=== PATIENT | male | born 1975 | race Caucasian/White ===

== ENCOUNTER 2019-03-22 17:01 | Emergency (ER) | payer SELFPAY ==
[2019-03-22 17:26] VITALS: BMI 28.2
[2019-03-22 18:26] VITALS: RESP 18
[2019-03-22 18:51] LABS: BASO # 0.1 K/uL (0.0-0.2); BASO % 1.1 % (0.0-2.0); EOS # 0.2 K/uL (0.0-0.7); EOS % 3.5 % (0.0-4.0); HEMOGLOBIN 14.5 g/dL (12.0-18.0); LYMPH # 1.9 K/uL (1.0-4.3); LYMPH % 30.8 % (20.0-40.0); MEAN CELL VOLUME 85.7 fL (80.0-94.0); MEAN CORPUSCULAR HEMOGLOBIN 29.5 pg (27.0-31.0); MEAN CORPUSCULAR HGB CONC 34.5 g/dL (33.0-37.0); MONO # 0.5 K/uL (0.0-0.8); MONO % 8.3 % (0.0-10.0); NEUT # 3.5 K/uL (1.8-7.0); NEUT % 56.3 % (50.0-75.0); NRBC % 0.1 % (0.0-2.0); RBC 4.9 Mil/uL (4.40-5.90); RED CELL DISTRIBUTION WIDTH 13.8 % (11.5-14.5); WHITE BLOOD COUNT 6.2 K/uL (4.8-10.8)
[2019-03-22 18:53] VITALS: O2SAT 98
[2019-03-22 19:03] LABS: ALB/GLOB RATIO 1.2 (1.0-2.1); ALBUMIN 4.6 g/dL (3.5-5.0); ALT/SGPT 54 U/L (21-72); AST/SGOT 31 U/L (17-59); BLOOD UREA NITROGEN 12 mg/dL (9-20); CALCIUM 9.8 mg/dl (8.6-10.4); GFR NON-AFRICAN AMERICAN > 60
[2019-03-22] MEDS ORDERED: Iodixanol 320 MG/ML 100 ML BOTTLE IV ONE (19:18)
--- NOTE | 2019-03-22 21:11 | C.PDOC ---
History Of Present Illness 43-year-old male presents to the ED c/o right eye pain for the past 3 days. Patient reports associated redness, tearing and itching. Patient states that he often experiences these symptoms but they usually resolve on their own. Patient grew concerned when he developed a small lump at the medial canthus that is tender to touch. Patient denies any recent illness, trauma, seasonal allergies, fever, chills, rhinorrhea, cough, nausea, vomiting. Time Seen by Provider: 03/22/19 17:32 Chief Complaint (Nursing): ENT Problem History Per: Patient History/Exam Limitations: no limitations Onset/Duration Of Symptoms: Days (3) Injury To Eye?: No Quality: "Pain" Past Medical History Reviewed: Historical Data, Nursing Documentation, Vital Signs Vital Signs: Last Vital Signs Temp 97.8 F 03/22/19 18:53 Pulse 55 L 03/22/19 18:53 Resp 18 03/22/19 18:53 BP 144/90 03/22/19 18:53 Pulse Ox 98 03/22/19 18:53 Primary Care Provider: FAMILY PROVIDER,NO - Medical History PMH: No Chronic Diseases Surgical History: Appendectomy Family History: States: Unknown Family Hx - Social History Hx Alcohol Use: No Hx Substance Use: No - Immunization History Hx Tetanus Toxoid Vaccination: No Hx Influenza Vaccination: No Hx Pneumococcal Vaccination: No Review Of Systems Constitutional: Negative for: Fever, Chills Eyes: Positive for: Pain (right). Negative for: Vision Change ENT: Negative for: Nose Discharge, Nose Congestion Respiratory: Negative for: Cough Gastrointestinal: Negative for: Nausea, Vomiting Musculoskeletal: Negative for: Neck Pain Skin: Negative for: Rash, Bruising Neurological: Negative for: Headache, Dizziness Physical Exam - Physical Exam Appears: Non-toxic, No Acute Distress Skin: Normal Color, Warm, Dry Head: Atraumatic, Normacephalic Eye(s): bilateral: PERRL, EOMI, Other (vision: 20/20 OU, 20/25 OD, 20/25 OS. Pressure 14OD, 9OS. pea-sized edema noted at the right medial canthus, between the bridge of nose and eye with erythema of the skin. area is tender to palpation. no active pus drainage from noted from the site. tearing of the eyes and conjunctival injection noted. no inflammation of the lashes. eyes are asymmetric, with right eye appearing slightly sunken. ) Ear(s): Bilateral: Normal Nose: No Discharge, Other (boggy turbinates ) Oral Mucosa: Moist Tongue: Normal Appearing Lips: Normal Appearing Throat: No Erythema, No Exudate Neck: Normal ROM, Supple Cardiovascular: Rhythm Regular Respiratory: Normal Breath Sounds, No Wheezing Neurological/Psych: Oriented x3, Normal Speech, Normal Cognition ED Course And Treatment - Laboratory Results Result Diagrams: 03/22/19 18:46 03/22/19 18:46 Lab Results: Total Bilirubin 0.3 mg/dL (0.2-1.3) 03/22/19 18:46 AST 31 U/L (17-59) 03/22/19 18:46 ALT 54 U/L (21-72) 03/22/19 18:46 Alkaline Phosphatase 56 U/L (38-126) 03/22/19 18:46 Total Protein 8.4 g/dL (6.3-8.3) H 03/22/19 18:46 Albumin 4.6 g/dL (3.5-5.0) 03/22/19 18:46 Globulin 3.8 gm/dL (2.2-3.9) 03/22/19 18:46 Albumin/Globulin Ratio 1.2 (1.0-2.1) 03/22/19 18:46 O2 Sat by Pulse Oximetry: 98 (on RA ) Pulse Ox Interpretation: Normal - CT Scan/US CT Orbits Other Rad Studies (CT/US): Read By Radiologist, Radiology Report Reviewed CT/US Interpretation: EXAM: CT Orbits with Intravenous Contrast. CLINICAL HISTORY: Redness/swelling right eye. TECHNIQUE: Axial computed tomography images of the orbits with intravenous contrast. 0.00 mGy-cm. CONTRAST: With; visipaque 320/100ml. COMPARISON: None provided. FINDINGS: ORBITS: Unremarkable. No retrobulbar hematoma. No post-septal fat stranding or fluid. An apparent 1.3 x 1.1 cm heterogeneous collection is seen in the medial canthus of the right orbit. A lacrimal duct mass or infectious process with obstruction cannot be excluded. Ophthalmology consultation is recommended. BONES: No acute fracture or aggressive appearing osseous lesion. No periosteal reaction. SINUSES: No sinus air-fluid level as visualized. SOFT TISSUES: No soft tissue gas. No radiopaque foreign body. IMPRESSION: 1. A 1.3 x 1.1 cm heterogeneous collection is seen in the medial canthus of the right orbit. A suspected lacrimal duct mass or infectious process causing duct obstruction may be present. Ophthalmology consultation is recommended. Medical Decision Making Medical Decision Making: Progress: Toradol IM and Clindamycin PO given for dacrocystistis CT orbits ordered- no orbital cellulitis but ductal obstruction noted labs unremarkable patient notified of the results and advised to follow up with ophtho but will continue antibiotics, start afrin as decongestant, and warm compresses daily patient verbalized understanding and patient is stable for discharge Disposition Counseled Patient/Family Regarding: Studies Performed, Diagnosis, Need For Followup, Rx Given - Disposition Referrals: Otis Dai [Staff Provider] - Fabiano Orozco MD [Medical Doctor] - Darien Renee MD [Staff Provider] - Jareth Suarez MD [Medical Doctor] - Paul Neville MD [Non-Staff] - Evie Faye DO [Doctor Osteopathy] - Leon Quesada MD [Medical Doctor] - Disposition: HOME/ ROUTINE Disposition Time: 21:45 Condition: GOOD Additional Instructions: Continue Clindamycin three times a day for 10 days Afrin spray for 3 days only Warm compresses 5 times a day Follow up with Ophthalmology in 1-2 days Return to the ED if symptom worsen Prescriptions: Clindamycin [Cleocin] 300 mg PO TID #29 cap Ibuprofen [Motrin] 600 mg PO Q8 PRN #30 tab PRN Reason: Pain, Moderate (4-7) Oxymetazoline 0.05% [Oxymetazoline HCl 30 Ml] 1 spray JL BID 3 Days #1 bottle Instructions: Tear Duct Infection (DC) Forms: [employer] (Montenegrin) - Clinical Impression Clinical Impression: Pain of right orbit, Dacrocystitis - PA / RN LICENSED PRACTICAL / Resident Statement / has reviewed & agrees with the documentation as recorded. - Scribe Statement The provider has reviewed the documentation as recorded by the Scribe (Jennifer Dawson) All medical record entries made by the Scribe were at my direction and personally dictated by me. I have reviewed the chart and agree that the record accurately reflects my personal performance of the history, physical exam, medical decision making, and the department course for this patient. I have also personally directed, reviewed, and agree with the discharge instructions and disposition.
[2019-03-22 21:13] VITALS: BP 127/83; PULSE 58; TEMP 98.6
--- NOTE | 2019-03-23 12:57 | CT ---
Date of service: 03/22/2019 PROCEDURE: CT ORBITS WITH CONTRAST. HISTORY: dacrocysitis r/o orbital cellulitis COMPARISON: None available. TECHNIQUE: Following administration of intravenous iodinated contrast, axial CT images of the orbits were obtained. Coronal and sagittal reformats were generated. Intravenous contrast dose: Visipaque 320, 100 cc Radiation dose: Total exam DLP = 612.7 mGy-cm. This CT exam was performed using one or more of the following dose reduction techniques: Automated exposure control, adjustment of the mA and/or kV according to patient size, and/or use of iterative reconstruction technique. FINDINGS: RIGHT ORBIT: RIGHT BONY ORBIT: The lacrimal sac fossa is widened with no acute fracture, cortical loss or periosteal reaction identified. Right bony orbit is otherwise unremarkable appearing RIGHT INTRAORBITAL STRUCTURES: Globe: Normal. Extraocular muscles: Normal. Post septal space: Normal. Optic Nerve: Normal. Lacrimal Apparatus: Normal. RIGHT PRESEPTAL SOFT TISSUES: The lacrimal sac is dilated measuring 1.4 x 1.1 cm hazy peripheral margins and peripheral enhancement. No internal septation or nodularity is identified and artifacts related to nasal bones and the orbital bones limit proper Hounsfield unit measurement. True density measurement is felt to be in the mid to high teens with artifacted areas measuring over 60. No radiodense dacrolithiasis appreciable. No definitive postseptal fatty reaction to indicate orbital cellulitis at this time. Pattern is consistent with the patient's clinical history of dacrocystitis. Remottling of the lacrimal sac fossa, overall pattern may reflect acute superimposed on chronic lacrimal sac/duct disease. LEFT ORBIT: LEFT BONY ORBIT: Normal. LEFT INTRAORBITAL STRUCTURES: Globe: Normal. Extraocular muscles: Normal. Post septal space: Normal. Optic Nerve: Normal. Lacrimal Apparatus: Normal. LEFT PRESEPTAL SOFT TISSUES: Normal. OTHER: None. IMPRESSION: Findings likely reflect clinically known right orbital dacrocystitis with medial periorbital cellulitis. Remodeling of the lacrimal sac fossa, it is unclear whether this may reflect an infectious or inflammatory process superimposed over chronic disease. Due to gross artifacts obscuring density measurements, underlying lesion of the lacrimal cyst is not excluded but is not favored either. No radiodense dacrolithiasis appreciable. No postseptal orbital cellulitis changes identified. Concordant preliminary report from [facility], 03/22/2019, 9:17 p.m..
== END 2019-03-22 21:56 | disposition home or self-care (01) ==
LOC: EDBD 17:01 → C.ER 17:01
DX: H57.11 Ocular pain, right eye (principal); H04.309 Unspecified dacryocystitis of unspecified lacrimal passage
CPT/HCPCS: 70481; 80053; 85025; 96372; 99284; J1885; Q9967